=== PATIENT | female | born 1930 | race Caucasian/White ===

== ENCOUNTER 2016-12-30 16:00 | Emergency (ER) | payer OTHER ==
--- NOTE | 2016-12-30 17:41 | DIAGNOSTIC IMAGING REPORT ---
PROCEDURE: XR CHEST 1 VIEW INDICATION: SHORTNESS OF BREATH TECHNIQUE: Portable AP view (1710 hours) COMPARISON: Compared to chest x-ray on 01/26/2016. FINDINGS: Lungs are clear. Heart and mediastinum are normal. Thorax is normal. IMPRESSION: 1. Negative chest.
--- NOTE | 2016-12-30 18:57 | ED ORDER SUMMARY ---
..... Patient: NYA BRUCE OrderSheet [facility] VisitID: [id number] [place] [address] 86y, F Registration Date/Time: 12/30/2016 ORDER SHEET Weight: 57.1 kg (stated) Allergies: Sulfa Antibiotics, Baclofen, PredniSONE GENERAL ORDERS: Chest 1V Urgent (16:53 12/30/2016 Cris Robles) (Ack 16:57 OSnidhi) (17:24 KKnebel R.N.) Cardiac Panel Stat (16:53 12/30/2016 Cris Robles) (Ack 16:57 OSnidhi) (17:15 JONATHANnebel R.N.) UA-Culture if indicated Urgent (16:53 12/30/2016 Cris Robles) (Ack 16:57 Clarisse) (18:02 JONATHANnebel R.N.) EKG - ER Stat (16:53 12/30/2016 Cris Robles) (Ack 16:57 Clarisse) (17:15 JONATHANneshira R.N.) (17:15 Jose) MEDICATION ORDERS: Augmentin PO 875 mg (NOW) (18:43 12/30/2016 Cris Robles) (Ack 18:51 MWinterer R.N.) (18:54 MWinterer R.N.) IV FLUIDS: IV NS : initial bolus none -, then 1000 mL/hr for X1 (NOW) (16:52 12/30/2016 Cris Robles) (Ack 17:03 oberjose manuel R.N.) (17:16 JONATHANnebel R.N.) ORDER SHEET NOTES: [Electronically signed by Ludy Barbour R.N. (00:08 12/31/2016)] [Electronically signed by Hai West Dr. (10:08 01/02/2017)] [Electronically locked/signed by Ludy Barbour R.N. (00:08 12/31/2016)]
--- NOTE | 2016-12-30 18:57 | ED NURSING NOTES ---
Clinical Report - Nurses [facility] [address] [place] [address] 12/30/2016 16:02 [id number] TRI[facility] Triage time 16:Dec 30 2016. Acuity: LEVEL 3. Chief Complaint: SYNCOPE. Alert. No acute distress. SOLEDAD COMA SCORE: [place] Coma Scale: 15- eyes open spontaneously (4); best verbal response- oriented x 4 (5); best motor response- obeys commands (6). --16:10 Ludy Barbour R.N. 16:04 12/30/16. BP: 155/53. HR: 75. RR: 24. O2 saturation: 96%. Temp: 98.5 F. Pain level now: 0/10. --16:10 Ludy Barbour R.N. Weight: 57.1 kg stated. Height/Length: 61 inches Per Patient. BMI: 23.8. --16:09 Ludy Barbour R.N. Medications ASA Oral 81 mg q day. Gabapentin Oral 300 mg, 3x a day. Levothyroxine Sodium Oral 75 mcg, daily. --16:06 Ludy Barbour R.N. Pantoprazole Sodium Oral 40 mg, daily. Pramipexole Dihydrochloride Oral 0.125 mg, at bedtime. Warfarin Sodium Oral 5 mg MWF,2.5 the rest of the week. --16:06 Ludy Barbour R.N. Lasix Oral. TraMADol HCl Oral. --16:07 Ludy Barbour R.N. Allergies Sulfa Antibiotics. --16:07 Ludy Barbour R.N. Baclofen. PredniSONE. --16:07 Ludy Barbour R.N. History Arrived by EMS, and from home. Historian: patient. Accompanied by family. This started just prior to arrival. She has had weakness. Treatment LOG CARRIER OPERATOR: None. EMS treatment LOG CARRIER OPERATOR verbally communicated. See EMS report. BP: 110/66. HR: 72. RR: 16. Temp: 98.5. O2 saturation: 96. --16:10 Ludy Barbour R.N. PROBLEMS: Fractured humerus. Dental Trauma. Tetanus Status. Laceration. Contusion. Fall. Soft Tissue Foreign Body. Wrist Fracture. Facial Fracture. Gastroesophageal Reflux. Hyperlipidemia. Thyroid Disease. Hypercholesterolemia. Hypothyroidism. Hypertension. CVA - Cerebrovascular Accident. --16:08 Ludy Barbour R.N. ADDITIONAL SURGERIES: Hysterectomy. Oophorectomy. Salpingectomy. --16:08 Ludy Barbour R.N. Interventions ID band on patient. To room. --16:10 Ludy Barbour R.N. PHYSICAL ASSESSMENT To room via stretcher. Baseline functional status: usually alert, oriented x4 and cooperative. Verbal response: usually clear. Motor response: usually moves all extremities equally GENERAL / NEURO / PSYCH: Awake. Oriented X 4. Alert. Appears in no acute distress. Speech normal. Mood/affect normal. HEENT: No facial asymmetry noted. RESPIRATORY: Respirations not labored. CVS: Capillary refill less than 2 seconds. SKIN: Skin is warm and dry. --16:11 Ludy Barbour R.N. NURSING PROGRESS NOTES monitor car operator, pulse oximeter and NIBP monitor placed on patient; quality assurance monitor- Lead II; monitor alarms on. Patient gowned. Head of bed elevated. Patient identifiers checked. Call light placed in reach. Side rails up x 2. Bed placed in lowest position. Brakes of bed on. --16:12 Ludy Barbour R.N. 16:15 12/30/2016 Site #1 started via IV in the right antecubital space with an 20g angiocath, with aseptic technique and good blood return; one attempt. Blood drawn: rainbow set. Labeled in the presence of the patient and sent to the lab. Saline lock flushed. --17:15 Ludy Barbour R.N. 17:16 12/30/2016 Started bag #1 1000 mL IV Fluids IV NS (Saline); bolus of 1000 mL over 1 hour(s) via site #1 --17:16 Ludy Barbour R.N. EKG time: (1713). EKG was ordered, performed by a tech and shown to the ED physician. --17:29 Dolly Neil Patient ID band checked for patient name: patient confirmed. Instructions provided to collect clean catch urine and patient verbalized understanding. Clean catch urine collected with return of yellow-colored clear urine; sample sent to lab for urinalysis and culture. Specimen labeled in the presence of the patient. --18:01 Ludy Barbour R.N. The patient is calm and resting quietly. Overall patient status is the same- she states feels better. GENERAL / NEURO / PSYCH: Alert. Oriented X 4. Affect appears normal. RESPIRATORY: No respiratory distress. SKIN: Skin is warm and dry. --18:05 Ludy Barbour R.N. 18:05 12/30/16. BP: 149/67. HR: 75. RR: 20. O2 saturation: 98%. Pain level now: 0/10. --18:05 Ludy Barbour R.N. 18:27 12/30/2016 IV Fluids IV NS Discontinued: bag #1 infused. Total amount infused: 1000 mL. IV patency established. IV site checked: no pain, redness, or swelling. IV flushed thoroughly. --18:27 Giselle Peterson R.N. 18:30 12/30/16. ( Pt ambulated to with walker.). --18:30 Giselle Peterson R.N. 18:54 12/30/2016 Augmentin (Amoxicillin-Pot Clavulanate) PO 875 mg given. Allergies verified and confirmed 5 rights. --18:54 Giselle Peterson R.N. DISPOSITION / DISCHARGE 18:55 12/30/16. BP: 189/59. HR: 85. RR: 16. O2 saturation: 100% on room air. Temp: 97.4 F (oral). Pain level now: 0/10. --19:00 Giselle Peterson R.N. Departure time: 19:02 Dec 30 2016. Condition at departure: improved. No learning barriers present. Discharge instructions provided and reviewed with the patient. Reviewed medication(s) side effects, precautions, dosing and course information. Prescription(s) given to the patient. Reviewed referral to a primary care physician for followup. Patient verbalized understanding. Written instructions provided in Faroese. The patient was discharged home and accompanied by spouse. She left the Emergency Department ambulatory and via private vehicle. Spouse driving. FALL RISK ASSESSMENT: Fall risk assessment completed. No fall risk identified. --19:02 Ludy Barbour R.N. Locked/Released at 12/31/2016 0:08 by Ludy Barbour R.N.
--- NOTE | 2016-12-30 18:57 | ED ORDER SUMMARY ---
..... Patient: NYA BRUCE OrderSheet [facility] VisitID: [id number] [place] [address] 86y, F Registration Date/Time: 12/30/2016 ORDER SHEET Weight: 57.1 kg (stated) Allergies: Sulfa Antibiotics, Baclofen, PredniSONE GENERAL ORDERS: Chest 1V Urgent (16:53 12/30/2016 Cris Robles) (Ack 16:57 OSnidhi) (17:24 KKnebel R.N.) Cardiac Panel Stat (16:53 12/30/2016 Cris Robles) (Ack 16:57 OSnidhi) (17:15 JONATHANnebel R.N.) UA-Culture if indicated Urgent (16:53 12/30/2016 Cris Robles) (Ack 16:57 Clarisse) (18:02 JONATHANnebel R.N.) EKG - ER Stat (16:53 12/30/2016 Cris Robles) (Ack 16:57 Clarisse) (17:15 JONATHANneshira R.N.) (17:15 Jose) MEDICATION ORDERS: Augmentin PO 875 mg (NOW) (18:43 12/30/2016 Cris Robles) (Ack 18:51 MWinterer R.N.) (18:54 MWinterer R.N.) IV FLUIDS: IV NS : initial bolus none -, then 1000 mL/hr for X1 (NOW) (16:52 12/30/2016 Cris Robles) (Ack 17:03 oberjose manuel R.N.) (17:16 JONATHANnebel R.N.) ORDER SHEET NOTES: [Electronically signed by Ludy Barbour R.N. (00:08 12/31/2016)] [Electronically signed by Hai West Dr. (10:08 01/02/2017)] [Electronically locked/signed by Ludy Barbour R.N. (00:08 12/31/2016)]
--- NOTE | 2016-12-30 18:57 | ED NURSING NOTES ---
Clinical Report - Nurses [facility] [address] [place] [address] 12/30/2016 16:02 [id number] Triage time 16:Dec 30 2016. Acuity: LEVEL 3. Chief Complaint: SYNCOPE. Alert. No acute distress. SOLEDAD COMA SCORE: [place] Coma Scale: 15- eyes open spontaneously (4); best verbal response- oriented x 4 (5); best motor response- obeys commands (6). --16:10 Ludy Barbour R.N. 16:04 12/30/16. BP: 155/53. HR: 75. RR: 24. O2 saturation: 96%. Temp: 98.5 F. Pain level now: 0/10. --16:10 Ludy Barbour R.N. Weight: 57.1 kg stated. Height/Length: 61 inches Per Patient. BMI: 23.8. --16:09 Ludy Barbour R.N. Medications ASA Oral 81 mg q day. Gabapentin Oral 300 mg, 3x a day. Levothyroxine Sodium Oral 75 mcg, daily. --16:06 Ludy Barbour R.N. Pantoprazole Sodium Oral 40 mg, daily. Pramipexole Dihydrochloride Oral 0.125 mg, at bedtime. Warfarin Sodium Oral 5 mg MWF,2.5 the rest of the week. --16:06 Ludy Barbour R.N. Lasix Oral. TraMADol HCl Oral. --16:07 Ludy Barbour R.N. Allergies Sulfa Antibiotics. --16:07 Ludy Barbour R.N. Baclofen. PredniSONE. --16:07 Ludy Barbour R.N. History Arrived by EMS, and from home. Historian: patient. Accompanied by family. This started just prior to arrival. She has had weakness. Treatment ROPEMAN: None. EMS treatment ROPEMAN verbally communicated. See EMS report. BP: 110/66. HR: 72. RR: 16. Temp: 98.5. O2 saturation: 96. --16:10 Ludy Barbour R.N. PROBLEMS: Fractured humerus. Dental Trauma. Tetanus Status. Laceration. Contusion. Fall. Soft Tissue Foreign Body. Wrist Fracture. Facial Fracture. Gastroesophageal Reflux. Hyperlipidemia. Thyroid Disease. Hypercholesterolemia. Hypothyroidism. Hypertension. CVA - Cerebrovascular Accident. --16:08 Ludy Barbour R.N. ADDITIONAL SURGERIES: Hysterectomy. Oophorectomy. Salpingectomy. --16:08 Ludy Barbour R.N. Interventions ID band on patient. To room. --16:10 Ludy Barbour R.N. PHYSICAL ASSESSMENT To room via stretcher. Baseline functional status: usually alert, oriented x4 and cooperative. Verbal response: usually clear. Motor response: usually moves all extremities equally GENERAL / NEURO / PSYCH: Awake. Oriented X 4. Alert. Appears in no acute distress. Speech normal. Mood/affect normal. HEENT: No facial asymmetry noted. RESPIRATORY: Respirations not labored. CVS: Capillary refill less than 2 seconds. SKIN: Skin is warm and dry. --16:11 Ludy Barbour R.N. NURSING PROGRESS NOTES home theatre technician, pulse oximeter and NIBP monitor placed on patient; telephone ad taker- Lead II; monitor alarms on. Patient gowned. Head of bed elevated. Patient identifiers checked. Call light placed in reach. Side rails up x 2. Bed placed in lowest position. Brakes of bed on. --16:12 Ludy Barbour R.N. 16:15 12/30/2016 Site #1 started via IV in the right antecubital space with an 20g angiocath, with aseptic technique and good blood return; one attempt. Blood drawn: rainbow set. Labeled in the presence of the patient and sent to the lab. Saline lock flushed. --17:15 Ludy Barbour R.N. 17:16 12/30/2016 Started bag #1 1000 mL IV Fluids IV NS (Saline); bolus of 1000 mL over 1 hour(s) via site #1 --17:16 Ludy Barbour R.N. EKG time: (1713). EKG was ordered, performed by a tech and shown to the ED physician. --17:29 Dolly Neil Patient ID band checked for patient name: patient confirmed. Instructions provided to collect clean catch urine and patient verbalized understanding. Clean catch urine collected with return of yellow-colored clear urine; sample sent to lab for urinalysis and culture. Specimen labeled in the presence of the patient. --18:01 Ludy Barbour R.N. The patient is calm and resting quietly. Overall patient status is the same- she states feels better. GENERAL / NEURO / PSYCH: Alert. Oriented X 4. Affect appears normal. RESPIRATORY: No respiratory distress. SKIN: Skin is warm and dry. --18:05 Ludy Barbour R.N. 18:05 12/30/16. BP: 149/67. HR: 75. RR: 20. O2 saturation: 98%. Pain level now: 0/10. --18:05 Ludy Barbour R.N. 18:27 12/30/2016 IV Fluids IV NS Discontinued: bag #1 infused. Total amount infused: 1000 mL. IV patency established. IV site checked: no pain, redness, or swelling. IV flushed thoroughly. --18:27 Giselle Peterson R.N. 18:30 12/30/16. ( Pt ambulated to with walker.). --18:30 Giselle Peterson R.N. 18:54 12/30/2016 Augmentin (Amoxicillin-Pot Clavulanate) PO 875 mg given. Allergies verified and confirmed 5 rights. --18:54 Giselle Petersno R.N. DISPOSITION / DISCHARGE 18:55 12/30/16. BP: 189/59. HR: 85. RR: 16. O2 saturation: 100% on room air. Temp: 97.4 F (oral). Pain level now: 0/10. --19:00 Giselle Peterson R.N. Departure time: 19:02 Dec 30 2016. Condition at departure: improved. No learning barriers present. Discharge instructions provided and reviewed with the patient. Reviewed medication(s) side effects, precautions, dosing and course information. Prescription(s) given to the patient. Reviewed referral to a primary care physician for followup. Patient verbalized understanding. Written instructions provided in Ch[place]. The patient was discharged home and accompanied by spouse. She left the Emergency Department ambulatory and via private vehicle. Spouse driving. FALL RISK ASSESSMENT: Fall risk assessment completed. No fall risk identified. --19:02 Ludy Barbour R.N. Locked/Released at 12/31/2016 0:08 by Ludy Barbour R.N.
--- NOTE | 2016-12-30 18:57 | ED CLINICAL REPORT ---
Clinical Report - Physicians/Mid Levels [facility] [address] [place] [address] 12/30/2016 16:02 Patient: NYA BRUCE Time Seen: 16:32; initial patient contact. Arrived- By ambulance. Historian- patient. HISTORY OF PRESENT ILLNESS Chief Complaint: NEAR-SYNCOPE. The patient recovered at the scene. This occurred just prior to arrival. Event was witnessed. (2 family members were able to catch her before she went to the ground.). Witnessed by family member. The patient had preceding symptoms of light-headedness, nausea, dim vision and warmth. No preceding symptoms of chest pain or abdominal pain. The patient felt faint and collapsed. No loss of consciousness, seizure activity, incontinence or apnea noted. At time of event, she was standing. This did not occur during exertion. Currently she has no symptoms. No injuries noted. Currently she feels normal. (She admits to not drinking enough fluids as she is concerned about her incontinence.). Similar symptoms previously: None. Recent medical care: Not recently seen/assessed. REVIEW OF SYSTEMS No headache, chest pain, palpitations, abdominal pain or vomiting. No diarrhea or fever. She has had dizziness and weakness. All systems otherwise negative, except as recorded above. PAST HISTORY ( Fractured humerus. Dental Trauma. Tetanus Status. Laceration. Contusion. Fall. Soft Tissue Foreign Body. Wrist Fracture. Facial Fracture. Gastroesophageal Reflux. Hyperlipidemia. Thyroid Disease. Hypercholesterolemia. Hypothyroidism. Hypertension. CVA - Cerebrovascular Accident. ADDITIONAL SURGERIES: Hysterectomy. Oophorectomy. Salpingectomy. -). SOCIAL HISTORY Never smoker. No alcohol use or drug use. ADDITIONAL NOTES The nursing notes have been reviewed. PHYSICAL EXAM Vital Signs: 12/30/2016 16:04 BP: 155/53. HR: 75. RR: 24. O2 saturation: 96%. Temp: 98.5 F. Pain level now: 0/10. Have been reviewed. Hypertensive. Heart rate normal. Tachypneic. Temperature normal. Oxygen saturation normal. Appearance: Alert. No acute distress. Eyes: Pupils equal, round and reactive to light. No nystagmus. Extraocular movements normal. ENT: Dry mucous membranes present. Neck: Normal inspection. CVS: Normal heart rate and rhythm. 2/6 holosystolic systolic murmur located at the base with radiation to the neck. Respiratory: No respiratory distress. Breath sounds normal. Abdomen: Soft and nontender. No organomegaly. Back: Normal inspection. No CVA tenderness. Skin: Skin warm and dry. Normal skin color. Extremities: No lower extremity edema. Neuro: Alert. Oriented X 3. Mood/affect normal. Speech normal. Cranial nerves normal (as tested). No cerebellar findings. No motor deficit. No sensory deficit. LABS, X-RAYS, AND EKG EKG: EKG time: (3). No acute process. No acute ischemia. Normal sinus rhythm. Rate: 73. Normal P waves. Normal IZABELLA. Normal QRS complex. Normal axis. Normal ST and T waves, QT and QTc. Prior EKG unavailable. The study has been interpreted contemporaneously by me. The study has been independently viewed by me. The EKG appears to be a good tracing. Interpretation time: 171. Chest X-ray: No acute disease. Normal lung markings present. Normal heart size. No infiltrate. Views: AP. Technique: good. The X-rays were independently viewed by me and interpreted contemporaneously by me. Prior films were not available for comparison. Laboratory Tests: UA-Culture if indicated: (CELESTE: 12/30/2016 17:55) ( MsgRcvd 12/30/2016 18:22) Final results Test Result Flag Units (Reference) URINE COLOR STRAW URINE APPEARANCE HAZY URINE GLUCOSE NEGATIVE (NEGATIVE) URINE BILIRUBIN NEGATIVE (NEGATIVE) URINE KETONE NEGATIVE (NEGATIVE) URINE SPECIFIC GRAVITY <= 1.005 L (1.010-1.030) URINE PH 6.5 (5.0-8.0) URINE PROTEIN NEGATIVE (NEGATIVE) URINE UROBILINOGEN 0.2 EU/dL (0.2-1.0) URINE NITRITE NEGATIVE (NEGATIVE) URINE BLOOD NEGATIVE (NEGATIVE) URINE LEUK ESTERASE POSITIVE (NEGATIVE) URINE RBC NONE SEEN rbc/hpf (0-1) URINE WBC 5-10 wbc/hpf (0-1) URINE EPITHELIAL CELLS RARE EPI/hpf (0-5) URINE BACTERIA NONE SEEN (NONE SEEN) URINE COMMENT CULTURE INDICATED URINE CULTURES ARE SET-UP BASED ON THE FOLLOWING CRITERIA:POSITIVE NITRITEPOSITIVE LEUKOCYTE ESTERASEGREATER THAN 10 WHITE BLOOD CELLSMODERATE (2+) OR GREATER BACTERIA CBC w Diff: (CELESTE: 12/30/2016 16:15) ( [facility] [place] 17:05) Final results Test Result Flag Units (Reference) WHITE BLOOD COUNT 7.2 K/uL (4.5-11.5) RED BLOOD COUNT 4.31 M/uL (4.00-5.20) HEMOGLOBIN 10.5 L gm/dL (12.0-16.0) HEMATOCRIT 32.2 L % (36.0-46.0) MEAN CELL VOLUME 75 L fL (80-100) MEAN CORPUSCULAR HGB 24 L pg (26-34) MEAN CORPUSCULAR HGB CONC 33 g/dL (31-37) RED CELL DISTRIBUTION WIDTH 16.8 H % (11.6-14.8) PLATELET COUNT 290 K/uL (150-400) NEUTROPHIL % 61.9 % (50-75) LYMPH % 31.2 % (25-40) MONO % 5.9 % (3-14) EOSINOPHIL % 0.7 % (0-4) BASOPHIL % 0.3 % (0-2) CHEM 13 PANEL: (CELESTE: 12/30/2016 16:15) ( NhgRcvd 12/30/2016 17:20) Final results Test Result Flag Units (Reference) GLUCOSE 155 H mg/dL (70-110) BUN 18 mg/dL (7-18) CREATININE 0.8 mg/dL (0.6-1.3) Estimated GFR >60 mL/min Estimated GFR- >60 mL/min Note: Persistent reduction over 3 months in eGFR<60 mL/min/1.73 m2 defines CKD. Patients with eGFR values>=60 mL/min/1.73 m2 may also have CKD if evidence ofpersistent proteinuria. Additional information may be foundat www.kidney.org. SODIUM 142 mmol/L (136-145) POTASSIUM 3.5 mmol/L (3.5-5.1) CHLORIDE 105 mmol/L (98-107) CARBON DIOXIDE 30 mmol/L (21-32) CALCIUM 8.6 mg/dL (8.5-10.1) TOTAL PROTEIN 6.4 g/dL (6.4-8.2) ALBUMIN 3.3 g/dL (3.3-5.0) BILIRUBIN, TOTAL 0.3 mg/dL (0.0-1.0) ALKALINE PHOSPHATASE 77 U/L (46-116) AST (SGOT) 15 U/L (15-37) ALT (SGPT) 18 U/L (12-78) MAGNESIUM 2.3 mg/dL (1.8-2.4) CPK 76 U/L (24-260) TROPONIN I <0.05 ng/mL (0.00-1.5) TROPONIN REFERENCE RANGE:<0.1 NEGATIVE0.1-1.5 INDETERMINANT>1.5 POSITIVE Culture, Urine: (CELESTE: 12/30/2016 17:55) ( MsgRcvd 01/01/2017 12:19) Final results Test Result Flag Units (Reference) CULTURE, URINE DATE: 01/01/17 NO SIGNIFICANT ISOLATION: NO SIGNIFICANT ISOLATION PRELIM REPORT: FINAL REPORT . PROGRESS AND PROCEDURES Disposition: Discharged home in good and improved condition. Condition: good. CLINICAL IMPRESSION Vasovagal syncope .12 lead EKG performed. Acute urinary tract infection with cystitis. INSTRUCTIONS Drink plenty of fluids. Your Current Medications: CONTINUE TAKING THE FOLLOWING MEDICATIONS: ASA Oral : 81 mg q day. Gabapentin Oral : 300 mg 3x a day. Lasix Oral. Levothyroxine Sodium Oral : 75 mcg daily. Pantoprazole Sodium Oral : 40 mg daily. Pramipexole Dihydrochloride Oral : 0.125 mg at bedtime. TraMADol HCl Oral. Warfarin Sodium Oral : 5 mg MWF,2.5 the rest of the week. Prescription Medications: Augmentin 875 mg: take 1 tablet orally every 12 hours for 3 days. Substitution is permissible. Follow-up: Follow up with your doctor in about two days. Call for an appointment. Blood pressure screening was not performed during this visit because the patient has an active diagnosis of hypertension. (Electronically signed by Hai West Dr. 01/02/2017 10:08)
--- NOTE | 2017-01-02 10:08 | ED DISCHARGE INSTRUCTIONS ---
Patient: NYA BRUCE General Instructions Located Within [facility] VisitID: [id number] [place] [address] 86y, F Registration Date/Time: 12/30/2016 Vasovagal syncope .12 lead EKG performed. Acute urinary tract infection with cystitis. INSTRUCTIONS Drink plenty of fluids. Your Current Medications: CONTINUE TAKING THE FOLLOWING MEDICATIONS: ASA Oral : 81 mg q day. Gabapentin Oral : 300 mg 3x a day. Lasix Oral. Levothyroxine Sodium Oral : 75 mcg daily. Pantoprazole Sodium Oral : 40 mg daily. Pramipexole Dihydrochloride Oral : 0.125 mg at bedtime. TraMADol HCl Oral. Warfarin Sodium Oral : 5 mg MWF,2.5 the rest of the week. Prescription Medications: Augmentin 875 mg: take 1 tablet orally every 12 hours for 3 days. Substitution is permissible. Follow-up: Follow up with your doctor in about two days. Call for an appointment. Blood pressure screening was not performed during this visit because the patient has an active diagnosis of hypertension. ADDITIONAL INFORMATION Fainting:Vagal Reaction Fainting (syncope) is a temporary loss of consciousness ("passing out"). It occurs when blood flow to the brain is reduced. Your doctor believes that your episode was due to a vagal reaction. This condition is not a sign of serious disease. A vagal reaction is a reflex response that causes the pulse to slow down or the blood vessels to dilate. This causes the blood pressure to fall, reducing the blood flow to the brain if you are standing or sitting. That results in dizziness, near-fainting or fainting. Lying down usually stops the reaction within 60 seconds. This reflex response can occur during sudden fear, severe pain, emotional stress, overexertion, overheating, hunger, nausea or vomiting, prolonged standing or standing up after sitting or lying for a long time. Home Care: 1) Rest today and resume your normal activities as soon as you are feeling back to normal. 2) If you become light-headed or dizzy, lie down immediately or sit with your head lowered between your knees. Follow Up with your doctor as instructed. Get Prompt Medical Attention if any of the following occur: -- Another fainting spell occurs, which is not explained by the common causes listed above -- Chest, arm, neck, jaw, back or abdominal pain -- Shortness of breath -- Severe headache or seizure -- Blood in vomit, stools (black or red color) -- Unexpected vaginal bleeding -- Palpitations (very rapid or very slow or irregular heart beat) -- Signs of stroke: Weakness of an arm or leg or one side of the face Difficulty with speech or vision Extreme drowsiness, confusion, dizziness or fainting Bladder Infection,Female (Adult) A bladder infection ("cystitis" or "UTI") usually causes a constant urge to urinate and a burning when passing urine. Urine may be cloudy, smelly or dark. There may be pain in the lower abdomen. A bladder infection occurs when bacteria from the vaginal area enter the bladder opening (urethra). This can occur from sexual intercourse, wearing tight clothing, dehydration and other factors. Home Care: Drink lots of fluids (at least 6-8 glasses a day, unless you must restrict fluids for other medical reasons). This will force the medicine into your urinary system and flush the bacteria out of your body. Avoid sexual intercourse until your symptoms are gone. Avoid caffeine, alcohol and spicy foods. These can irritate the bladder. A bladder infection is treated with antibiotics. You may also be given Pyridium (generic = phenazopyridine) to reduce the burning sensation. This medicine will cause your urine to become a bright orange color. The orange urine may stain clothing. You may wear a pad or panty-liner to protect clothing. Preventing Future Infections: Always wipe from front to back after a bowel movement. Keep the genital area clean and dry. Drink plenty of fluids each day to avoid dehydration. Both sexual partners should wash before intercourse. Urinate right after intercourse to flush out the bladder. Wear cotton underwear and cotton-lined panty hose; avoid tight-fitting pants. If you are on control pills and are having frequent bladder infections, discuss with your doctor. Follow Up: Return to this facility or see your doctor if ALL symptoms are not gone after three days of treatment. Get Prompt Medical Attention if any of the following occur: Fever of 100.4F (38C) or higher, or as directed by your healthcare provider No improvement by the third day of treatment Increasing back or abdominal pain Repeated vomiting; unable to keep medicine down Weakness, dizziness or fainting Vaginal discharge Pain, redness or swelling in the labia (outer vaginal area) Amoxicillin Trihydrate, Clavulanate Potassium Oral tablet What is this medicine? AMOXICILLIN; CLAVULANIC ACID (a mox i LIUDMILA in; PARTHA andino id) is a penicillin antibiotic. It is used to treat certain kinds of bacterial infections. It will not work for colds, flu, or other viral infections. How should I use this medicine? Take this medicine by mouth with a full glass of water. Follow the directions on the prescription label. Take at the start of a meal. Do not crush or chew. If the tablet has a score line, you may cut it in half at the score line for easier swallowing. Take your medicine at regular intervals. Do not take your medicine more often than directed. Take all of your medicine as directed even if you think you are better. Do not skip doses or stop your medicine early. Talk to your astronomy professor regarding the use of this medicine in children. Special care may be needed. What side effects may I notice from receiving this medicine? Side effects that you should report to your doctor or health special needs caregiver as soon as possible: allergic reactions like skin rash, itching or hives, swelling of the face, lips, or tongue breathing problems dark urine fever or chills, sore throat redness, blistering, peeling or loosening of the skin, including inside the mouth seizures trouble passing urine or change in the amount of urine unusual bleeding, bruising unusually weak or tired white patches or sores in the mouth or throat Side effects that usually do not require medical attention (report to your doctor or health special needs caregiver if they continue or are bothersome): diarrhea dizziness headache nausea, vomiting stomach upset vaginal or anal irritation What may interact with this medicine? allopurinol anticoagulants control pills methotrexate probenecid What if I miss a dose? If you miss a dose, take it as soon as you can. If it is almost time for your next dose, take only that dose. Do not take double or extra doses. Where should I keep my medicine? Keep out of the reach of children. Store at room temperature below 25 degrees C (77 degrees F). Keep container tightly closed. Throw away any unused medicine after the expiration date. What should I tell my health care provider before I take this medicine? They need to know if you have any of these conditions: bowel disease, like colitis kidney disease liver disease mononucleosis an unusual or allergic reaction to amoxicillin, penicillin, cephalosporin, other antibiotics, clavulanic acid, other medicines, foods, dyes, or preservatives or trying to get breast-feeding What should I watch for while using this medicine? Tell your doctor or health special needs caregiver if your symptoms do not improve. Do not treat diarrhea with over the counter products. Contact your doctor if you have diarrhea that lasts more than 2 days or if it is severe and watery. If you have diabetes, you may get a false-positive result for sugar in your urine. Check with your doctor or health special needs caregiver. control pills may not work properly while you are taking this medicine. Talk to your doctor about using an extra method of control. You have been given the following additional information: Syncope, Vasovagal Bladder Infection, Female (Adult) Amoxicillin Trihydrate, Clavulanate Potassium Oral tablet (Electronically signed by Hai West Dr. 01/02/2017 10:08)
--- NOTE | 2017-01-02 10:08 | ED MED RECONCILIATION SUMMARY ---
Patient: NYA BRUCE Medication Reconciliation Report [facility] VisitID: [id number] [address] [place] [address] 86y, F Registration Date/Time: 12/30/2016 Weight: 57.1 kg Height/Length: 61 in. BMI: 23.8 ALLERGIES: Baclofen, PredniSONE, Sulfa Antibiotics The patient's Home Medications are listed below: CONTINUE TAKING THE FOLLOWING MEDICATIONS: ASA Oral 81 mg q day Gabapentin Oral 300 mg, 3x a day Lasix Oral Levothyroxine Sodium Oral 75 mcg, daily Pantoprazole Sodium Oral 40 mg, daily Pramipexole Dihydrochloride Oral 0.125 mg, at bedtime TraMADol HCl Oral Warfarin Sodium Oral 5 mg MWF,2.5 the rest of the week The source(s) of the original Home Medication information: Not obtained. The following Medications were given to the patient in the Emergency Department: IV NS IV Fluids bolus 1000 mL over 1 hour(s), administered: 12/30/2016 5:16:00 PM Augmentin [PO] PO 875 mg, administered: 12/30/2016 6:54:00 PM The following Medications were prescribed to the patient: Augmentin 875 mg: take 1 tablet orally every 12 hours for 3 days. Substitution is permissible. -- Hai West Dr.
--- NOTE | 2017-01-02 10:08 | ED MED RECONCILIATION SUMMARY ---
Patient: NYA BRUCE Medication Reconciliation Report [facility] VisitID: [id number] [address] [place] [address] 86y, F Registration Date/Time: 12/30/2016 Weight: 57.1 kg Height/Length: 61 in. BMI: 23.8 ALLERGIES: Baclofen, PredniSONE, Sulfa Antibiotics The patient's Home Medications are listed below: CONTINUE TAKING THE FOLLOWING MEDICATIONS: ASA Oral 81 mg q day Gabapentin Oral 300 mg, 3x a day Lasix Oral Levothyroxine Sodium Oral 75 mcg, daily Pantoprazole Sodium Oral 40 mg, daily Pramipexole Dihydrochloride Oral 0.125 mg, at bedtime TraMADol HCl Oral Warfarin Sodium Oral 5 mg MWF,2.5 the rest of the week The source(s) of the original Home Medication information: Not obtained. The following Medications were given to the patient in the Emergency Department: IV NS IV Fluids bolus 1000 mL over 1 hour(s), administered: 12/30/2016 5:16:00 PM Augmentin [PO] PO 875 mg, administered: 12/30/2016 6:54:00 PM The following Medications were prescribed to the patient: Augmentin 875 mg: take 1 tablet orally every 12 hours for 3 days. Substitution is permissible. -- Hai West Dr.
--- NOTE | 2017-01-02 10:08 | ED MAR SUMMARY ---
..... Medication Administration Record [facility] [address] [place] [address] Patient: NYA BRUCE Visit ID: [id number] 86y, F Weight: 57.1 kg Height/Length: 61 in BMI: 23.8 ALLERGIES: Baclofen, PredniSONE, Sulfa Antibiotics Start 17:16 12/30/2016 Ludy Barbour RSamantha, Stop 18:27 12/30/2016 Giselle Peterson R.N. Medication Administered: IV NS (SALINE), Dose: IV Fluids, Bolus: 1000 mL over 1 hour(s), Dispensed: 1000 mL bag, Site: #1 right AC. Medication Ordered: IV NS : initial bolus none -, then 1000 mL/hr for X1 (NOW). Given 18:54 12/30/2016 Giselle Peterson RMaricelNMaricel Medication Administered: AUGMENTIN [PO] (AMOXICILLIN-POT CLAVULANATE), Dose: 875 mg PO. Medication Ordered: Augmentin PO 875 mg (NOW).
--- NOTE | 2017-01-02 10:08 | ED MAR SUMMARY ---
..... Medication Administration Record [facility] [address] [place] [address] Patient: NYA BRUCE Visit ID: [id number] 86y, F Weight: 57.1 kg Height/Length: 61 in BMI: 23.8 ALLERGIES: Baclofen, PredniSONE, Sulfa Antibiotics Start 17:16 12/30/2016 Ludy Barbour RSamantha, Stop 18:27 12/30/2016 Giselle Peterson R.N. Medication Administered: IV NS (SALINE), Dose: IV Fluids, Bolus: 1000 mL over 1 hour(s), Dispensed: 1000 mL bag, Site: #1 right AC. Medication Ordered: IV NS : initial bolus none -, then 1000 mL/hr for X1 (NOW). Given 18:54 12/30/2016 Giselle Peterson RMaricelNMaricel Medication Administered: AUGMENTIN [PO] (AMOXICILLIN-POT CLAVULANATE), Dose: 875 mg PO. Medication Ordered: Augmentin PO 875 mg (NOW).
== END 2016-12-30 19:03 | disposition home or self-care (01) ==
LOC: ED SRH 16:00
DX: R55 Syncope and collapse (principal); N30.00 Acute cystitis without hematuria; I10 Essential (primary) hypertension; E03.9 Hypothyroidism, unspecified; E78.00 Pure hypercholesterolemia, unspecified; Z86.73 Personal history of transient ischemic attack (TIA), and cerebral infarction without residual deficits
CPT/HCPCS: 90004; 90100; 90469; 90616; 92610; 92720; 95059